=== PATIENT | female | born 1945 | race Caucasian/White ===

== ENCOUNTER → 2020-02-21 | Outpatient (CLI) | payer MEDICARE, OTHER ==
--- NOTE | 2020-02-21 13:33 | Diagnostic Imaging Report ---
PROCEDURE: CT abdomen and pelvis without contrast. TECHNIQUE: Multiple contiguous axial images were obtained through the abdomen and pelvis without the use of intravenous contrast. Auto Exposure Controls were utilized during the CT exam to meet ALARA standards for radiation dose reduction. INDICATION: Constipation for six months. COMPARISON: No prior studies are available for comparison. FINDINGS: The lung bases are clear. The liver and gallbladder are unremarkable. No bile duct dilatation is seen. The pancreas and spleen are unremarkable. No adrenal mass is detected. No renal calculi or hydronephrosis is identified. Aorta is non-aneurysmal. Bowel loops are normal caliber. There is no obstruction. There is moderate stool within the right colon as well as the transverse colon. No free fluid or fluid collection is seen. The bladder is unremarkable. Uterus appears to be surgically absent. No abdominal or pelvic lymphadenopathy is detected. No inflammatory changes are seen. Bony structures are nonacute. IMPRESSION: Moderate stool in the right colon and transverse colon. The study is otherwise unremarkable. No acute abnormality is detected. Dictated by: Dictated on workstation # [id number]
== END ==
LOC: RAD 12:45
PROVIDERS: ATTEND Family Medicine
DX: K59.00 Constipation, unspecified (principal); R10.9 Unspecified abdominal pain
CPT/HCPCS: 74176

== ENCOUNTER 2021-05-10 09:03 | Outpatient (CLI) | payer MEDICARE, OTHER ==
[~2021-05-10] VITALS: Ht 160 cm; Wt 75.0 kg
[2021-05-10 10:08] VITALS: BP 153/80
[2021-05-10] MEDS ORDERED: ONDANSETRON 4 MG/2 ML (SDV) Z0FRAN IV PRN (10:45)
[2021-05-10] MEDS ORDERED: diphenhydrAMINE 50 MG/ML INJ (BENADRYL) IV PRN (10:45)
[2021-05-10] MEDS ORDERED: ACETAMINOPHEN 500 MG TAB (TYLENOL) PO PRN (10:45)
[2021-05-10] MEDS ORDERED: EPINEPHrine INJECTION 1 MG/ML AMP IM PRN (10:45)
[2021-05-10] MEDS ORDERED: BAMLANIVIMAB 700 MG/ETESEVIMAB 1,400 MG IN NS IV ONE ×3 (10:45)
[2021-05-10 12:05] VITALS: BP 161/60
== END 2021-05-10 12:05 | disposition home or self-care (01) ==
LOC: INFUSION 09:03
PROVIDERS: ATTEND Nurse Practitioner Family
DX: U07.1 COVID-19 (principal)

== ENCOUNTER → 2021-07-20 | Outpatient (CLI) | payer MEDICARE, OTHER ==
--- NOTE | 2021-07-20 17:52 | Diagnostic Imaging Report ---
TECHNIQUE: Live grayscale and color Doppler ultrasound was performed over the right calf. Reason for exam: Nodule in the right lower leg. COMPARISON: None. FINDINGS: Echogenic nodule is seen in the soft tissues of the right lower extremity measuring 0.9 x 0.4 x 0.7 cm. No internal vascularity is seen. A hypoechoic rim is noted surrounding this nodule. No other focal abnormalities are visualized. IMPRESSION: 1. Likely lipoma within the right lower extremity soft tissues. No further follow-up is recommended unless noticeable enlargement occurs. Dictated by: Dictated on workstation # [id number]
== END ==
LOC: RAD 14:15
PROVIDERS: ATTEND Nurse Practitioner Family
DX: R22.41 Localized swelling, mass and lump, right lower limb (principal)
CPT/HCPCS: 76881